=== PATIENT | female | born 1955 | race Caucasian/White ===

== ENCOUNTER 2019-12-29 20:20 | Emergency (ER) | payer OTHER ==
[2019-12-29 20:29] VITALS: BP 169/90; PULSE 65; TEMP 97.6; BMI 33.6
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
[2019-12-29] MEDS ORDERED: PROPARACAINE 0.5% OPHTH SOLN 15 ML BTL OD ONE (21:08)
[2019-12-29] MEDS ORDERED: FLUORESCEIN NA 1 EA STRIP OD ONE (21:08)
[2019-12-29] MEDS ORDERED: FLUORESCEIN NA 1 EA STRIP ONE (21:10)
[2019-12-29] MEDS ORDERED: TETRACAINE 0.5% OPHTH SOLN 2 ML BOTTLE ONE (21:10)
[2019-12-29] MEDS ORDERED: TETRACAINE 0.5% HCL 0.6ML DROPPER.BOTTLE OD ONE (21:10)
[2019-12-29] MEDS ORDERED: ERYTHROMYCIN 0.5% OPHTHALMIC OINTMENT 3.5 GM TUBE OD ONE (22:17)
[2019-12-29] MEDS ORDERED: ERYTHROMYCIN 0.5% OPHTHALMIC OINTMENT 3.5 GM TUBE ONE (22:22)
== END 2019-12-29 22:43 | disposition home or self-care (01) ==
LOC: JERFT 20:20
DX: S05.8X1A Other injuries of right eye and orbit, initial encounter (principal); W22.8XXA Striking against or struck by other objects, initial encounter; Y93.89 Activity, other specified; Y92.89 Other specified places as the place of occurrence of the external cause; Y99.8 Other external cause status; I10 Essential (primary) hypertension
CPT/HCPCS: 70450-TC; 70480-TC; 99284-25

== ENCOUNTER 2023-12-15 07:56 | Emergency (ER) | payer OTHER ==
[2023-12-15 08:01] VITALS: BP 145/88; PULSE 71; RESP 16; TEMP 98.3; BMI 28.2
[2023-12-15 09:42] LABS: URINE APPEARANCE Clear; URINE BILIRUBIN Negative (NEGATIVE); URINE COLOR Yellow; URINE GLUCOSE (UA) Negative (NEGATIVE); URINE KETONE Negative (NEGATIVE); URINE LEUK ESTERASE 1+ (NEGATIVE); URINE NITRITE Negative (NEGATIVE); URINE PROTEIN Negative (NEGATIVE); URINE UROBILINOGEN 0.2 mg/dL (0.2-1.0)
[2023-12-15 10:57] LABS: URINE RBC 0-2 /uL (0-23.9)
[2023-12-15 10:58] LABS: EPI CELLS rare /uL (0-25.1)
== END 2023-12-15 10:50 | disposition home or self-care (01) ==
LOC: JER 07:56
DX: N30.91 Cystitis, unspecified with hematuria (principal); R30.9 Painful micturition, unspecified; L29.2 Pruritus vulvae; N89.8 Other specified noninflammatory disorders of vagina; R30.0 Dysuria; R10.2 Pelvic and perineal pain; N95.2 Postmenopausal atrophic vaginitis
CPT/HCPCS: 81003; 87086; 99283-25

== ENCOUNTER 2024-07-26 08:13 | Emergency (ER) | payer OTHER ==
[2024-07-26 08:18] VITALS: BP 155/98; PULSE 79; RESP 16; TEMP 97.9; BMI 30.9
[2024-07-26 09:50] LABS: URINE APPEARANCE CLEAR; URINE BILIRUBIN NEGATIVE (NEGATIVE); URINE COLOR YELLOW; URINE GLUCOSE (UA) NEGATIVE (NEGATIVE); URINE KETONE NEGATIVE (NEGATIVE); URINE LEUK ESTERASE NEGATIVE (NEGATIVE); URINE NITRITE NEGATIVE (NEGATIVE); URINE PROTEIN NEGATIVE (NEGATIVE); URINE UROBILINOGEN 0.2 mg/dL (0.2-1.0)
[2024-07-26 09:51] LABS: BASO % 0.8 % (0-2.0); HEMATOCRIT 40.4 % (32.4-45.2); HEMOGLOBIN 13.9 GM/dL (10.7-15.3); LYMPH % 30.9 % (8-40); MCH 32.5 pg (25.7-33.7); MCHC 34.3 g/dl (32.0-36.0); MEAN CELL VOLUME 94.5 fl (80-96); MEAN PLT VOLUME 7.5 fl (7.5-11.1); MONO % 8.9 % (3.8-10.2); NEUT % 58.4 % (42.8-82.8); PLATELET COUNT 236 10^3/uL (134-434); RBC 4.27 M/mm3 (3.60-5.2); RDW 12.8 % (11.6-15.6); WHITE BLOOD COUNT 7.3 K/mm3 (4.0-10.0)
[2024-07-26 10:14] LABS: POTASSIUM 3.7 mmol/L (3.5-5.1)
[2024-07-26 10:16] LABS: ALBUMIN 3.7 g/dl (3.4-5.0); BLOOD UREA NITROGEN 18.5 mg/dL (7-18)
[2024-07-26 10:19] LABS: CREATININE 0.9 mg/dL (0.55-1.3)
[2024-07-26 10:21] LABS: BILIRUBIN,TOTAL 0.6 mg/dL (0.2-1); TOT PROT 7.1 g/dl (6.4-8.2)
== END 2024-07-26 15:04 | disposition home or self-care (01) ==
LOC: JER 08:13
DX: R10.31 Right lower quadrant pain (principal)
CPT/HCPCS: 36415; 74176-TC; 76830-TC; 80053; 81003; 85025; 87086; 99285-25